=== PATIENT | male | born 1980 ===

== ENCOUNTER 2016-08-19 03:57 | Emergency (ER) | payer SELFPAY ==
[2016-08-19] MEDS ORDERED: Ketorolac Tromethamine 60 MG/2 ML VIAL ONE (04:13)
--- NOTE | 2016-08-19 04:29 | ERRECORD ---
[facility] EMERGENCY RECORD HPI ANKLE (04:13 [facility]) CHIEF COMPLAINT: Patient presents for evaluation of pain, to the right ankle, Patient presents for evaluation of tenderness, to the right ankle. HISTORIAN: History provided by patient, 35M presents with complaints of anterior right ankle pain for the past 15 days. States he hurt his ankle getting off a train 15 days ago and it has hurt since then> States the pain is better with rest and worse with ambulation. Also complains of cramping posterior calf pain that started tonight. He walked 27 miles here tonight, after being released from detention earlier. Denies other trauma or injury. MECHANISM OF INJURY: Known mechanism. LOCATION: Symptoms are localized, right anterior ankle pain. QUALITY: Pain is dull in nature, described as aching. TIME COURSE: Sudden onset of symptoms, There has been no change in the patient's symptoms over time. ASSOCIATED WITH: No signs of compartment syndrome, No associated open wounds. EXACERBATED BY: Patient's condition exacerbated by flexion, Patient's condition exacerbated by dorsiflexion. RELIEVED BY: Patient's condition relieved by nothing because patient has not tried anything for relief. RISK FACTORS: No achilles Tendon Rupture risk factors identified. ROS (04:17 [facility]) CONSTITUTIONAL: Negative constitutional review of systems, Historian denies chills, denies fever. ENT: Negative ears, nose, throat review of systems, Historian denies rhinorrhea, denies sore throat. CARDIOVASCULAR: Negative cardiovascular review of systems, Historian denies chest pain, denies palpitations. RESPIRATORY: Negative respiratory review of systems, Historian denies cough, denies shortness of breath. GI: Negative gastrointestinal review of systems, Historian denies abdominal pain, denies constipation, denies diarrhea, denies nausea, denies vomiting. MUSCULOSKELETAL: right ankle pain, right calf pain. SKIN: Negative skin review of systems, Historian denies rash, denies skin changes. NEUROLOGIC: Negative neurologic review of systems, Historian denies headache. PAST MEDICAL HISTORY (04:27 [facility]) MEDICAL HISTORY: No past medical history. MALE SURGICAL HISTORY: Patient has no surgical history. PSYCHIATRIC HISTORY: Notes: NO PREVIOUS PSYCH HX. SOCIAL HISTORY: Patient denies alcohol use, Patient denies drug use, Patient is a former tobacco user. FAMILY HISTORY: No known family hisotry. &a-1R&a+25V*p+0X*u0967B*c202B*c15G*c2P*p-0X&a-25V&a+1R Name: Bg Zamora : 1980 M35 MedRec: [id number] AcctNum: [id number] Prepared: Lara Aug 19, 2016 04:32 by Interface Page 1 of 3 pMD [facility] EMERGENCY RECORD KNOWN ALLERGIES NKA CURRENT MEDICATIONS No recorded medications VITAL SIGNS (04:00 [facility]) VITAL SIGNS: BP: 143/89, Pulse: 91, Resp: 20, Temp: 98.4 (Oral), Pain: 9, O2 sat: 98 on Room Air, Time: 08/19/2016 04:00. PHYSICAL EXAM CONSTITUTIONAL: Vital signs reviewed, Patient afebrile, Pulse normal, Blood pressure normal, Respiratory rate normal, Patient appears non toxic, Patient appears pain free, Patient alert and oriented to person, place and time. (04:17 JJA) NECK: Neck exam normal, Neck exam included findings of normal range of motion, Trachea midline, no meningeal signs, no cervical adenopathy, no tenderness. (04:17 JJAC) RESPIRATORY CHEST: Respiratory and chest exam normal, Respiratory exam included findings of no respiratory distress, Breath sounds clear. (04:17 JJAC) CARDIOVASCULAR: Cardiovascular assessment normal, Cardiovascular exam included findings of heart rate regular rate and rhythm, Heart sounds normal. (04:17 JJAC) ABDOMEN MALE: Abdominal exam included findings of abdomen nontender, Bowel sounds normal, no distension, no mass, no pulsatile masses, no peritoneal signs, no rigidity, no guarding, no rebound, Rovsing's sign absent. (04:17 JJAC) BACK: Back exam normal, Back exam included findings of normal inspection, range of motion normal, no tenderness. (04:17 JJAC) LOWER EXTREMITY: Right ankle:, No ankle abrasions, no ankle deformity, no ankle ecchymosis, no ankle erythema, no ankle hematoma, no ankle swelling, no ankle warmth, Ankle tenderness, Achilles tendon intact, Ankle active range of motion normal, Ankle passive range of motion normal, Ankle tendon function normal, distal pulses intact, capillary refill less than 2 seconds, distal motor intact, distal sensory intact, Ankle stable, vii. Anterior Drawer Test normal, Talar tilt test normal, tibialis anterior tendon tenderness. (04:20 JJA) NEURO: Neuro exam normal, Neuro exam findings include patient oriented to person, place and time, Speech normal, Gait normal. (04:17 JJA) SKIN: Skin exam normal, Skin exam included findings of skin warm, dry, and normal in color, no rash. (04:17 JJA) MEDICATION ADMINISTRATION SUMMARY Drug Name: Toradol intramuscular, Dose Ordered: 60 mg, Route: Intramuscular, Status: Given, Time: 04:19 08/19/2016, Detailed record available in Medication Service section. &a-1R&a+25V*p+0X*k5319J*c202B*c15G*c2P*p-0X&a-25V&a+1R Name: Bg Zamora : 1980 M35 MedRec: [id number] AcctNum: [id number] Prepared: TueAug 19, 2016 04:32 by Interface Page 2 of 3 pMD [facility] EMERGENCY RECORD DOCTOR NOTES (04:21 [facility]) TEXT: Patient presented with findings consistent with tibialis anterior tendonitis. Posterior calf pain likely muscle strain from overexertion. No evidence of infectious process or traumatic injury, no need for imaging studies. Needs anti-inflammatories and rest. PATIENT STATUS: Patient has improved since arrival to emergency department. PATIENT PLAN: The patient will be discharged, The patient will follow up with primary care physician. PROBLEM LIST No recorded problems DIAGNOSIS (04:12 [facility]) FINAL: PRIMARY: tendonitis. PRESCRIPTION No recorded prescriptions DISPOSITION PATIENT: Disposition Type: Discharge, Disposition: *Discharge Home. (04:12 JJA) Patient left the department. (04:29 MVIL) Bravo: SKYLAR=MD Pamela, Son MVIL=DARON Patel, Flory &a-1R&a+25V*p+0X*m9679V*c202B*c15G*c2P*p-0X&a-25V&a+1R Name: Bg Zamora : 1980 M35 MedRec: [id number] AcctNum: [id number] Prepared: Lara Aug 19, 2016 04:32 by Interface Page 3 of 3 pMD MTDD
--- NOTE | 2016-08-19 04:35 | PICIS ---
[facility] EMERGENCY RECORD TRIAGE (04:05 MVIL) TRIAGE NOTES: C/O RIGHT ANKLE PAIN X 15 DAYS. (04:05 MVIL) PATIENT: Zip Code: [id number], PAYMENT: [employer] Self Pay. (04:10) NAME: Bg Zamora, AGE: 35, GENDER: male, : Tue1980, TIME OF GREET: TueAug 19, 2016 03:58, PREFERRED LANGUAGE: Welsh, ETHNICITY: Not or , ECODE BILLING MAP: [facility] ER, KG WEIGHT: 70.31, HEIGHT/LENGTH: 170.18cm, BMI: 24.27, , , PERSON ID: [id number], PCP: NONE. (04:05 MVIL) PHONE: . (04:22) COMPLAINT: Right Ankle Pain. (04:05 MVIL) ADMISSION: URGENCY: 4 Non Urgent, ADMISSION SOURCE: Home, TRANSPORT: Walk-in, BED: ER -03. (04:05 MVIL) ASSESSMENT: Assessment: C/O RIGHT ANKLE PAIN X 15 DAYS, Symptoms began 08/05/2016 04:07, Symptoms began greater than 1 week ago. (04:09 MVIL) PAIN: Patient complains of pain described as, cramping, on a scale 0-10 patient rates pain as 9, Location RIGHT ANKLE UP TOWARDS RIGHT BACK CALF, Pain is constant, No aggravating factors, No relieving factors. (04:09 MVIL) IMMUNIZATIONS: Flu vaccine not up to date, Tetanus immunization up to date, Pneumococcal vaccine up to date. (04:09 MVIL) SIRS SCORING: Heart Rate 55-109 (0), Temp range 96.8-101.1 (0), respiratory rate 12-24 (0), Mental Status altered: no (0). (04:09 MVIL) TRIAGE SCREENING: Patient denies suicidal ideation, Patient denies presence of domestic violence. (04:09 MVIL) PROVIDERS: TRIAGE NURSE: Flory Patel RN. (04:05 MVIL) VITAL SIGNS: BP 143/89, Pulse 91, Resp 20, Temp 98.4, (Oral), Pain 9, O2 Sat 98, on Room Air, Time 08/19/2016 04:00. (04:00 MVIL) KNOWN ALLERGIES NKA CURRENT MEDICATIONS No recorded medications VITAL SIGNS (04:00 MVIL) VITAL SIGNS: BP: 143/89, Pulse: 91, Resp: 20, Temp: 98.4 (Oral), Pain: 9, O2 sat: 98 on Room Air, Time: 08/19/2016 04:00. NURSING ASSESSMENT: EXTREMITY LOWER (04:09 [facility]) CONSTITUTIONAL: Patient arrives ambulatory, Gait steady, History obtained from patient, Patient appears comfortable, Patient cooperative, Patient alert, Oriented to person, place and time, Skin warm, Skin dry, Skin normal in color, Mucous membranes pink, Mucous membranes moist, Patient is well-groomed, Patient complains of RIGHT &a-1R&a+25V*p+0X*x3993B*c202B*c15G*c2P*p-0X&a-25V&a+1R Name: Bg Zamora : 1980 M35 MedRec: [id number] AcctNum: [id number] Prepared: Lara Aug 19, 2016 04:32 by Interface Page 1 of [address] [facility] EMERGENCY RECORD ANKLE PAIN X 15 DAYS. NO APPARENT INJURIES. DENIES ANY FALLS. PAIN: cramping pain, to the right ankle, Onset of pain 07/29/2016 04:10, constant, on a scale 0-10 patient rates pain as 9, Pain exacerbated by nothing, Nothing has been tried to alleviate the pain. RIGHT LOWER EXTREMITY: Right lower extremity assessment findings include capillary refill less than 2 seconds, Skin color normal, Skin temperature warm, Distal sensation intact, Muscle tone normal, muscle strength 5, +1 edema present, posterior tibia pulse is +4, dorsalis pedis pulse is +4. SAFETY: Side rails up, Cart/Stretcher in lowest position, Family at bedside, Call light within reach, Hospital ID band on. NURSING PROCEDURE: DISCHARGE NOTE (04:20 [facility]IL) DISCHARGE: Patient discharged to home, ambulating without assistance, patient walking, unaccompanied, Summary of Care printed/ provided, Patient requested and was provided an electronic copy of Discharge Instructions, Transition record given to patient, Discharge instructions given to patient, Above person(s) verbalized understanding of discharge instructions and follow-up care. BELONGINGS: Belongings and valuables with patient at time of discharge include:. MEDICATION ADMINISTRATION SUMMARY Drug Name: Toradol intramuscular, Dose Ordered: 60 mg, Route: Intramuscular, Status: Given, Time: 04:19 08/19/2016, Detailed record available in Medication Service section. MEDICATION SERVICE (04:19 [facility]) Toradol intramuscular: Order: Toradol intramuscular (ketorolac tromethamine) - Dose: 60 mg : Intramuscular Ordered by: Son Santiago MD Entered by: Son Santiago MD [facility] Aug 19, 2016 04:11 Documented as given by: Flory Patel RN [facility] Aug 19, 2016 04:19 Patient, Medication, Dose, Route and Time verified prior to administration. IM medication, Amount given: 60MG, Medication administered to right deltoid, Correct patient, time, route, dose and medication confirmed prior to administration, Patient advised of actions and side-effects prior to administration, Allergies confirmed and medications reviewed prior to administration, Patient in position of comfort, Side rails up, Cart in lowest position, Family at bedside. HPI ANKLE (04:13 [facility]) CHIEF COMPLAINT: Patient presents for evaluation of pain, to the right ankle, Patient presents for evaluation of tenderness, to the right ankle. HISTORIAN: History provided by patient, 35M presents &a-1R&a+25V*p+0X*z6503P*c202B*c15G*c2P*p-0X&a-25V&a+1R Name: Bg Zamora : 1980 M35 MedRec: [id number] AcctNum: [id number] Prepared: [facility] Aug 19, 2016 04:32 by Interface Page 2 of [address] [facility] EMERGENCY RECORD with complaints of anterior right ankle pain for the past 15 days. States he hurt his ankle getting off a train 15 days ago and it has hurt since then> States the pain is better with rest and worse with ambulation. Also complains of cramping posterior calf pain that started tonight. He walked 27 miles here tonight, after being released from senior living earlier. Denies other trauma or injury. MECHANISM OF INJURY: Known mechanism. LOCATION: Symptoms are localized, right anterior ankle pain. QUALITY: Pain is dull in nature, described as aching. TIME COURSE: Sudden onset of symptoms, There has been no change in the patient's symptoms over time. ASSOCIATED WITH: No signs of compartment syndrome, No associated open wounds. EXACERBATED BY: Patient's condition exacerbated by flexion, Patient's condition exacerbated by dorsiflexion. RELIEVED BY: Patient's condition relieved by nothing because patient has not tried anything for relief. RISK FACTORS: No achilles Tendon Rupture risk factors identified. ROS (04:17 [facility]) CONSTITUTIONAL: Negative constitutional review of systems, Historian denies chills, denies fever. ENT: Negative ears, nose, throat review of systems, Historian denies rhinorrhea, denies sore throat. CARDIOVASCULAR: Negative cardiovascular review of systems, Historian denies chest pain, denies palpitations. RESPIRATORY: Negative respiratory review of systems, Historian denies cough, denies shortness of breath. GI: Negative gastrointestinal review of systems, Historian denies abdominal pain, denies constipation, denies diarrhea, denies nausea, denies vomiting. MUSCULOSKELETAL: right ankle pain, right calf pain. SKIN: Negative skin review of systems, Historian denies rash, denies skin changes. NEUROLOGIC: Negative neurologic review of systems, Historian denies headache. PAST MEDICAL HISTORY (04:27 [facility]) MEDICAL HISTORY: No past medical history. MALE SURGICAL HISTORY: Patient has no surgical history. PSYCHIATRIC HISTORY: Notes: NO PREVIOUS PSYCH HX. SOCIAL HISTORY: Patient denies alcohol use, Patient denies drug use, Patient is a former tobacco user. FAMILY HISTORY: No known family hisotry. PHYSICAL EXAM CONSTITUTIONAL: Vital signs reviewed, Patient afebrile, Pulse normal, Blood pressure normal, Respiratory rate normal, Patient appears non toxic, Patient appears pain free, Patient alert and oriented to person, place and time. (04:17 [facility]) &a-1R&a+25V*p+0X*l2632X*c202B*c15G*c2P*p-0X&a-25V&a+1R Name: Bg Zamora : 1980 M35 MedRec: [id number] AcctNum: [id number] Prepared: [facility] Aug 19, 2016 04:32 by Interface Page 3 of [address] [facility] EMERGENCY RECORD NECK: Neck exam normal, Neck exam included findings of normal range of motion, Trachea midline, no meningeal signs, no cervical adenopathy, no tenderness. (04:17 JJAC) RESPIRATORY CHEST: Respiratory and chest exam normal, Respiratory exam included findings of no respiratory distress, Breath sounds clear. (04:17 JJAC) CARDIOVASCULAR: Cardiovascular assessment normal, Cardiovascular exam included findings of heart rate regular rate and rhythm, Heart sounds normal. (04:17 JJAC) ABDOMEN MALE: Abdominal exam included findings of abdomen nontender, Bowel sounds normal, no distension, no mass, no pulsatile masses, no peritoneal signs, no rigidity, no guarding, no rebound, Rovsing's sign absent. (04:17 JJAC) BACK: Back exam normal, Back exam included findings of normal inspection, range of motion normal, no tenderness. (04:17 JJAC) LOWER EXTREMITY: Right ankle:, No ankle abrasions, no ankle deformity, no ankle ecchymosis, no ankle erythema, no ankle hematoma, no ankle swelling, no ankle warmth, Ankle tenderness, Achilles tendon intact, Ankle active range of motion normal, Ankle passive range of motion normal, Ankle tendon function normal, distal pulses intact, capillary refill less than 2 seconds, distal motor intact, distal sensory intact, Ankle stable, vii. Anterior Drawer Test normal, Talar tilt test normal, tibialis anterior tendon tenderness. (04:20 JJAC) NEURO: Neuro exam normal, Neuro exam findings include patient oriented to person, place and time, Speech normal, Gait normal. (04:17 JJAC) SKIN: Skin exam normal, Skin exam included findings of skin warm, dry, and normal in color, no rash. (04:17 JJAC) EVENTS TRANSFER: Triage to Emergency Emergency Room -03. (Lara Aug 19, 2016 04:05 MVIL) Removed from Emergency Emergency Room -03. (04:29 MVIL) DOCTOR NOTES (04:21 JJAC) TEXT: Patient presented with findings consistent with tibialis anterior tendonitis. Posterior calf pain likely muscle strain from overexertion. No evidence of infectious process or traumatic injury, no need for imaging studies. Needs anti-inflammatories and rest. PATIENT STATUS: Patient has improved since arrival to emergency department. PATIENT PLAN: The patient will be discharged, The patient will follow up with primary care physician. PROBLEM LIST No recorded problems DIAGNOSIS (04:12 [facility]) &a-1R&a+25V*p+0X*v8294B*c202B*c15G*c2P*p-0X&a-25V&a+1R Name: Bg Zamora : 1980 5 MedRec: [id number] AcctNum: [id number] Prepared: TueAug 19, 2016 04:32 by Interface Page 4 of [address] [facility] EMERGENCY RECORD FINAL: PRIMARY: tendonitis. DISPOSITION PATIENT: Disposition Type: Discharge, Disposition: *Discharge Home. (04:12 JJA) Patient left the department. (04:29 MVIL) INSTRUCTION (04:12 [facility]) DISCHARGE: TENDONITIS. SPECIAL: Anti-inflammatories, ice, rest. PRESCRIPTION No recorded prescriptions IMAGING *DISCHARGE INSTRUCTIONS RECEIPT: Image captured from scanner. (04:20 MVIL) *SUPPLY CHARGE SHEET: Image captured from scanner. (04:21 MVIL) ADMIN (04:24 [facility]) DIGITAL SIGNATURE: MD Santiago Jason. Bravo: TAMI=MD Santiago Jason MVIL=DARON Patel, Flory &a-1R&a+25V*p+0X*z0526P*c202B*c15G*c2P*p-0X&a-25V&a+1R Name: Bg Zamora : 1980 M35 MedRec: [id number] AcctNum: [id number] Prepared: Lara Aug 19, 2016 04:32 by Interface Page 5 of 5 pMD MTDD
--- NOTE | 2016-08-19 04:40 | PICIS ---
[facility] EMERGENCY RECORD TRIAGE (04:05 MVIL) TRIAGE NOTES: C/O RIGHT ANKLE PAIN X 15 DAYS. (04:05 MVIL) PATIENT: Zip Code: [id number], PAYMENT: [employer] Self Pay. (04:10) NAME: Bg Zamora, AGE: 35, GENDER: male, : Tue1980, TIME OF GREET: TueAug 19, 2016 03:58, PREFERRED LANGUAGE: Danish, ETHNICITY: Not or , ECODE BILLING MAP: [facility] ER, KG WEIGHT: 70.31, HEIGHT/LENGTH: 170.18cm, BMI: 24.27, , , PERSON ID: [id number], PCP: NONE. (04:05 MVIL) PHONE: . (04:22) COMPLAINT: Right Ankle Pain. (04:05 MVIL) ADMISSION: URGENCY: 4 Non Urgent, ADMISSION SOURCE: Home, TRANSPORT: Walk-in, BED: ER -03. (04:05 MVIL) ASSESSMENT: Assessment: C/O RIGHT ANKLE PAIN X 15 DAYS, Symptoms began 08/05/2016 04:07, Symptoms began greater than 1 week ago. (04:09 MVIL) PAIN: Patient complains of pain described as, cramping, on a scale 0-10 patient rates pain as 9, Location RIGHT ANKLE UP TOWARDS RIGHT BACK CALF, Pain is constant, No aggravating factors, No relieving factors. (04:09 MVIL) IMMUNIZATIONS: Flu vaccine not up to date, Tetanus immunization up to date, Pneumococcal vaccine up to date. (04:09 MVIL) SIRS SCORING: Heart Rate 55-109 (0), Temp range 96.8-101.1 (0), respiratory rate 12-24 (0), Mental Status altered: no (0). (04:09 MVIL) TRIAGE SCREENING: Patient denies suicidal ideation, Patient denies presence of domestic violence. (04:09 MVIL) PROVIDERS: TRIAGE NURSE: Flory Patel RN. (04:05 MVIL) VITAL SIGNS: BP 143/89, Pulse 91, Resp 20, Temp 98.4, (Oral), Pain 9, O2 Sat 98, on Room Air, Time 08/19/2016 04:00. (04:00 MVIL) KNOWN ALLERGIES NKA CURRENT MEDICATIONS No recorded medications VITAL SIGNS (04:00 MVIL) VITAL SIGNS: BP: 143/89, Pulse: 91, Resp: 20, Temp: 98.4 (Oral), Pain: 9, O2 sat: 98 on Room Air, Time: 08/19/2016 04:00. NURSING ASSESSMENT: EXTREMITY LOWER (04:09 MVIL) CONSTITUTIONAL: Patient arrives ambulatory, Gait steady, History obtained from patient, Patient appears comfortable, Patient cooperative, Patient alert, Oriented to person, place and time, Skin warm, Skin dry, Skin normal in color, Mucous membranes pink, Mucous membranes moist, Patient is well-groomed, Patient complains of RIGHT &a-1R&a+25V*p+0X*z8920P*c202B*c15G*c2P*p-0X&a-25V&a+1R Name: Bg Zamora : 1980 M35 MedRec: [id number] AcctNum: [id number] Prepared: Lara Aug 19, 2016 04:38 by Interface Page 1 of 5 pMD [facility] EMERGENCY RECORD ANKLE PAIN X 15 DAYS. NO APPARENT INJURIES. DENIES ANY FALLS. PAIN: cramping pain, to the right ankle, Onset of pain 07/29/2016 04:10, constant, on a scale 0-10 patient rates pain as 9, Pain exacerbated by nothing, Nothing has been tried to alleviate the pain. RIGHT LOWER EXTREMITY: Right lower extremity assessment findings include capillary refill less than 2 seconds, Skin color normal, Skin temperature warm, Distal sensation intact, Muscle tone normal, muscle strength 5, +1 edema present, posterior tibia pulse is +4, dorsalis pedis pulse is +4. SAFETY: Side rails up, Cart/Stretcher in lowest position, Family at bedside, Call light within reach, Hospital ID band on. NURSING PROCEDURE: DISCHARGE NOTE (04:20 MVIL) DISCHARGE: Patient discharged to home, ambulating without assistance, patient walking, unaccompanied, Summary of Care printed/ provided, Patient requested and was provided an electronic copy of Discharge Instructions, Transition record given to patient, Discharge instructions given to patient, Above person(s) verbalized understanding of discharge instructions and follow-up care. BELONGINGS: Belongings and valuables with patient at time of discharge include:. MEDICATION ADMINISTRATION SUMMARY Drug Name: Toradol intramuscular, Dose Ordered: 60 mg, Route: Intramuscular, Status: Given, Time: 04:19 08/19/2016, Detailed record available in Medication Service section. MEDICATION SERVICE (04:19 [facility]) Toradol intramuscular: Order: Toradol intramuscular (ketorolac tromethamine) - Dose: 60 mg : Intramuscular Ordered by: Son Santiago MD Entered by: Son Santiago MD [facility] Aug 19, 2016 04:11 Documented as given by: Flory Patel RN [facility] Aug 19, 2016 04:19 Patient, Medication, Dose, Route and Time verified prior to administration. IM medication, Amount given: 60MG, Medication administered to right deltoid, Correct patient, time, route, dose and medication confirmed prior to administration, Patient advised of actions and side-effects prior to administration, Allergies confirmed and medications reviewed prior to administration, Patient in position of comfort, Side rails up, Cart in lowest position, Family at bedside. HPI ANKLE (04:13 [facility]) CHIEF COMPLAINT: Patient presents for evaluation of pain, to the right ankle, Patient presents for evaluation of tenderness, to the right ankle. HISTORIAN: History provided by patient, 35M presents &a-1R&a+25V*p+0X*a5712Y*c202B*c15G*c2P*p-0X&a-25V&a+1R Name: Bg Zamora : 1980 M35 MedRec: [id number] AcctNum: [id number] Prepared: [facility] Aug 19, 2016 04:38 by Interface Page 2 of 5 pMD [facility] EMERGENCY RECORD with complaints of anterior right ankle pain for the past 15 days. States he hurt his ankle getting off a train 15 days ago and it has hurt since then> States the pain is better with rest and worse with ambulation. Also complains of cramping posterior calf pain that started tonight. He walked 27 miles here tonight, after being released from half-way earlier. Denies other trauma or injury. MECHANISM OF INJURY: Known mechanism. LOCATION: Symptoms are localized, right anterior ankle pain. QUALITY: Pain is dull in nature, described as aching. TIME COURSE: Sudden onset of symptoms, There has been no change in the patient's symptoms over time. ASSOCIATED WITH: No signs of compartment syndrome, No associated open wounds. EXACERBATED BY: Patient's condition exacerbated by flexion, Patient's condition exacerbated by dorsiflexion. RELIEVED BY: Patient's condition relieved by nothing because patient has not tried anything for relief. RISK FACTORS: No achilles Tendon Rupture risk factors identified. ROS (04:17 [facility]) CONSTITUTIONAL: Negative constitutional review of systems, Historian denies chills, denies fever. ENT: Negative ears, nose, throat review of systems, Historian denies rhinorrhea, denies sore throat. CARDIOVASCULAR: Negative cardiovascular review of systems, Historian denies chest pain, denies palpitations. RESPIRATORY: Negative respiratory review of systems, Historian denies cough, denies shortness of breath. GI: Negative gastrointestinal review of systems, Historian denies abdominal pain, denies constipation, denies diarrhea, denies nausea, denies vomiting. MUSCULOSKELETAL: right ankle pain, right calf pain. SKIN: Negative skin review of systems, Historian denies rash, denies skin changes. NEUROLOGIC: Negative neurologic review of systems, Historian denies headache. PAST MEDICAL HISTORY (04:27 MVIL) MEDICAL HISTORY: No past medical history. MALE SURGICAL HISTORY: Patient has no surgical history. PSYCHIATRIC HISTORY: Notes: NO PREVIOUS PSYCH HX. SOCIAL HISTORY: Patient denies alcohol use, Patient denies drug use, Patient is a former tobacco user. FAMILY HISTORY: No known family hisotry. PHYSICAL EXAM CONSTITUTIONAL: Vital signs reviewed, Patient afebrile, Pulse normal, Blood pressure normal, Respiratory rate normal, Patient appears non toxic, Patient appears pain free, Patient alert and oriented to person, place and time. (04:17 [facility]) &a-1R&a+25V*p+0X*w8293O*c202B*c15G*c2P*p-0X&a-25V&a+1R Name: Bg Zamora : 1980 M35 MedRec: [id number] AcctNum: [id number] Prepared: [facility] Aug 19, 2016 04:38 by Interface Page 3 of 5 pMD [facility] EMERGENCY RECORD NECK: Neck exam normal, Neck exam included findings of normal range of motion, Trachea midline, no meningeal signs, no cervical adenopathy, no tenderness. (04:17 [facility]) RESPIRATORY CHEST: Respiratory and chest exam normal, Respiratory exam included findings of no respiratory distress, Breath sounds clear. (04:17 [facility]) CARDIOVASCULAR: Cardiovascular assessment normal, Cardiovascular exam included findings of heart rate regular rate and rhythm, Heart sounds normal. (04:17 [facility]) ABDOMEN MALE: Abdominal exam included findings of abdomen nontender, Bowel sounds normal, no distension, no mass, no pulsatile masses, no peritoneal signs, no rigidity, no guarding, no rebound, Rovsing's sign absent. (04:17 [facility]) BACK: Back exam normal, Back exam included findings of normal inspection, range of motion normal, no tenderness. (04:17 [facility]) LOWER EXTREMITY: Right ankle:, No ankle abrasions, no ankle deformity, no ankle ecchymosis, no ankle erythema, no ankle hematoma, no ankle swelling, no ankle warmth, Ankle tenderness, Achilles tendon intact, Ankle active range of motion normal, Ankle passive range of motion normal, Ankle tendon function normal, distal pulses intact, capillary refill less than 2 seconds, distal motor intact, distal sensory intact, Ankle stable, vii. Anterior Drawer Test normal, Talar tilt test normal, tibialis anterior tendon tenderness. (04:20 [facility]) NEURO: Neuro exam normal, Neuro exam findings include patient oriented to person, place and time, Speech normal, Gait normal. (04:17 [facility]) SKIN: Skin exam normal, Skin exam included findings of skin warm, dry, and normal in color, no rash. (04:17 [facility]) EVENTS TRANSFER: Triage to Emergency Emergency Room -03. (Lara Aug 19, 2016 04:05 MVIL) Removed from Emergency Emergency Room -03. (04:29 MVIL) DOCTOR NOTES (04:21 [facility]) TEXT: Patient presented with findings consistent with tibialis anterior tendonitis. Posterior calf pain likely muscle strain from overexertion. No evidence of infectious process or traumatic injury, no need for imaging studies. Needs anti-inflammatories and rest. PATIENT STATUS: Patient has improved since arrival to emergency department. PATIENT PLAN: The patient will be discharged, The patient will follow up with primary care physician. PROBLEM LIST No recorded problems DIAGNOSIS (04:12 [facility]) &a-1R&a+25V*p+0X*x3344B*c202B*c15G*c2P*p-0X&a-25V&a+1R Name: Bg Zamora : 1980 5 MedRec: [id number] AcctNum: [id number] Prepared: TueAug 19, 2016 04:38 by Interface Page 4 of 5 pMD [facility] EMERGENCY RECORD FINAL: PRIMARY: tendonitis. DISPOSITION PATIENT: Disposition Type: Discharge, Disposition: *Discharge Home. (04:12 JJA) Patient left the department. (04:29 MVIL) INSTRUCTION (04:12 [facility]) DISCHARGE: TENDONITIS. SPECIAL: Anti-inflammatories, ice, rest. PRESCRIPTION No recorded prescriptions IMAGING *DISCHARGE INSTRUCTIONS RECEIPT: Image captured from scanner. (04:20 MVIL) *SUPPLY CHARGE SHEET: Image captured from scanner. (04:21 MVIL) ADMIN (04:24 [facility]) DIGITAL SIGNATURE: MD Santiago Jason. Bravo: TAMI=MD Santiago Jason MVIL=DARON Patel, Flory &a-1R&a+25V*p+0X*a4249X*c202B*c15G*c2P*p-0X&a-25V&a+1R Name: Bg Zamora : 1980 M35 MedRec: [id number] AcctNum: [id number] Prepared: Lara Aug 19, 2016 04:38 by Interface Page 5 of 5 pMD MTDD
== END 2016-08-19 04:15 | disposition home or self-care (01) ==
LOC: BURERS 03:57
DX: M77.9 Enthesopathy, unspecified (principal); Z87.891 Personal history of nicotine dependence; X58.XXXA Exposure to other specified factors, initial encounter
CPT/HCPCS: 96372; J1885